=== PATIENT | female | born 1990 | race Two or more races ===

== ENCOUNTER 2022-09-19 10:07 | Emergency (ER) | payer BC, MEDICAID ==
[~2022-09-19] VITALS: Ht 165.1 cm; Wt 90.9 kg
[~2022-09-19 10:07] MED LIST: LURA40TA2 PO; NALT50TA6 PO
[2022-09-19 10:44] VITALS: BP 117/51
[2022-09-19] MEDS ORDERED: BACITRACIN 0.9 GM PACKET OINTMENT TP ONE (14:00)
[2022-09-24] MEDS ORDERED: ARIP10TA38 PO ×2 (09:55→10:20)
== END 2022-09-19 14:48 | disposition home or self-care (01) ==
LOC: EMS 10:13
DX: S00.83XA Contusion of other part of head, initial encounter (principal); F25.9 Schizoaffective disorder, unspecified; Y04.8XXA Assault by other bodily force, initial encounter; Y93.89 Activity, other specified; Y92.89 Other specified places as the place of occurrence of the external cause; Y99.8 Other external cause status
CPT/HCPCS: 70486; 99284; 73130-TC; Z7502; Z7610